=== PATIENT | male | born 1990 | race Caucasian/White ===

== ENCOUNTER 2023-11-02 19:05 | Emergency (ER) | payer OTHER ==
[~2023-11-02] VITALS: Ht 165.1 cm; Wt 68.0 kg
[2023-11-02] MEDS ORDERED: Ketorolac Tromethamine 10 MG Tab PO ONE (21:50)
== END 2023-11-02 22:20 | disposition home or self-care (01) ==
LOC: ER 19:05
DX: M54.6 Pain in thoracic spine (principal); M54.50 Low back pain, unspecified; G89.29 Other chronic pain; M54.10 Radiculopathy, site unspecified; Z59.00 Homelessness unspecified; F43.9 Reaction to severe stress, unspecified
CPT/HCPCS: 72070; 99283-25; A9270

== ENCOUNTER 2023-11-09 14:08 | Emergency (ER) | payer OTHER ==
[~2023-11-09] VITALS: Ht 170.2 cm; Wt 65.8 kg
== END 2023-11-09 14:30 | disposition home or self-care (01) ==
LOC: ER 14:08
DX: Z00.8 Encounter for other general examination (principal)
CPT/HCPCS: 99283

== ENCOUNTER 2023-11-15 02:00 | Emergency (ER) | payer OTHER ==
[~2023-11-15] VITALS: Ht 177.8 cm; Wt 68.0 kg
[2023-11-15] MEDS ORDERED: Hydrocortisone 2.5% Cream 30 GM Tube TOP ONE (05:40)
== END 2023-11-15 06:22 | disposition home or self-care (01) ==
LOC: ER 02:00
DX: L25.9 Unspecified contact dermatitis, unspecified cause (principal)
CPT/HCPCS: A9270

== ENCOUNTER 2023-11-22 15:45 | Emergency (ER) | payer OTHER ==
[~2023-11-22] VITALS: Ht 172.7 cm; Wt 65.8 kg
== END 2023-11-22 16:00 | disposition home or self-care (01) ==
LOC: ER 15:45
DX: L84 Corns and callosities (principal)
CPT/HCPCS: 99282

== ENCOUNTER 2023-11-27 17:33 | Emergency (ER) | payer OTHER ==
[~2023-11-27] VITALS: Ht 167.6 cm; Wt 72.6 kg
== END 2023-11-27 18:00 | disposition home or self-care (01) ==
LOC: ER 17:33
DX: Z20.828 Contact with and (suspected) exposure to other viral communicable diseases (principal)
CPT/HCPCS: 99282